=== PATIENT | male | born 1975 | race Caucasian/White ===

== ENCOUNTER 2023-10-02 11:03 | Outpatient (CLI) | payer OTHER ==
[2023-10-02] MEDS ORDERED: Iopamidol 370 76% 100 ML VIAL ONE (13:44)
== END 2023-10-02 11:04 | disposition home or self-care (01) ==
LOC: BICCT 11:03
PROVIDERS: ATTEND Physician Assistant
DX: R93.89 Abnormal findings on diagnostic imaging of other specified body structures (principal); K11.8 Other diseases of salivary glands
CPT/HCPCS: 70491; 82565; Q9967

== ENCOUNTER 2023-11-25 07:18 | Day surgery (SDC) | payer OTHER ==
[2023-11-24 11:52] VITALS: BMI 44.1
[2023-11-25] MEDS ORDERED: Lidocaine 1% (PF) 30 ML VIAL ONE (08:13)
[2023-11-25] MEDS ORDERED: EPINEPHrine 1 MG/ML VIAL ONE (08:13)
[2023-11-25] MEDS ORDERED: PROPOFOL 40 ML ONE (08:20)
[2023-11-25] MEDS ORDERED: fentaNYL PF 100 MCG/2 ML SYRINGE ONE (08:20)
[2023-11-25] MEDS ORDERED: Rocuronium Bromide 10 MG/ML (10ML VIAL) ONE (08:23)
[2023-11-25] MEDS ORDERED: Metoclopramide HCl 10 MG (2 mL) VIAL ONE (08:23)
[2023-11-25] MEDS ORDERED: Ondansetron PF 4 MG/2 ML Vial ONE (08:23)
[2023-11-25] MEDS ORDERED: SUCCINYLCHOLINE/SOD CL,ISO/PF 200 MG/10 ML SYRINGE FS ONE (08:44)
[2023-11-25] MEDS ORDERED: ePHEDrine Sulfate 50 MG/10 ML VIAL ONE (08:52)
[2023-11-25] MEDS ORDERED: CEFAZOLIN 1 GM VIAL ONE (08:52)
[2023-11-25] MEDS ORDERED: PROPOFOL 20 ML ONE (09:12)
[2023-11-25] MEDS ORDERED: fentaNYL 50 mcg/mL 1 mL Vial ONE (09:13)
== END 2023-11-25 11:07 | disposition home or self-care (01) ==
LOC: SDC 07:18
PROVIDERS: ATTEND Otolaryngology Plastic Surgery within the Head & Neck
PROC: 0JB10ZZ Excision of Face Subcutaneous Tissue and Fascia, Open Approach (ICD-10-PCS; principal; 2023-11-25)
DX: D17.0 Benign lipomatous neoplasm of skin and subcutaneous tissue of head, face and neck (principal); B37.84 Candidal otitis externa; H93.8X3 Other specified disorders of ear, bilateral
CPT/HCPCS: 88304; 93005; 93010; J0171; J0690; J2001; J2405; J2704; J2765; J3010